=== PATIENT | female | born 1960 | race Asian ===

== ENCOUNTER 2017-06-21 08:57 | Emergency (ER) | payer SELFPAY ==
[~2017-06-21] VITALS: Ht 167.6 cm; Wt 72.6 kg
[2017-06-21 08:58] VITALS: BP 108/72
--- NOTE | 2017-06-21 09:00 | NUR ---
56 YO FEMALE BIB EMS FROM FIELD FOR LEFT ARM PAIN AND LOW BACK PAIN FROM SLIP AND FALL. . DENIES N/V/D; SKIN IS PINK/WARM/DRY; AAOX4 WITH EVEN AND STEADY GAIT; LUNGS CLEAR BL; HR EVEN AND REGULAR; PT DENIES ANY FEVER, CP, SOB, OR COUGH AT THIS TIME; PATIENT STATES PAIN OF 8/10 AT THIS TIME; VSS; PATIENT POSITIONED FOR COMFORT; HOB ELEVATED; BEDRAILS UP X2; BED DOWN. ER MD MADE AWARE OF PT STATUS.
--- NOTE | 2017-06-21 09:38 | NUR ---
PATIENT TAKEN TO XRAY VIA GURNEY AT THIS TIME.
[2017-06-21] MEDS ORDERED: KETOROLAC 30 MG/ML VIAL IM ONE (10:05)
--- NOTE | 2017-06-21 10:20 | NUR ---
PT RESTING COMFORTABLY ON BED WITH AT BEDSIDE, PAIN MEDICATION GIVEN; WILL CONTINUE TO MONITOR
[2017-06-21 11:30] VITALS: BP 100/67
== END 2017-06-21 11:30 | disposition home or self-care (01) ==
LOC: MED 08:57
DX: S52.292A Other fracture of shaft of left ulna, initial encounter for closed fracture (principal); W11.XXXA Fall on and from ladder, initial encounter; Y93.89 Activity, other specified; Y92.89 Other specified places as the place of occurrence of the external cause; Y99.8 Other external cause status
CPT/HCPCS: 29105; 73090; 96372; 99284; J1885